=== PATIENT | female | born 1995 | race Caucasian/White ===

== ENCOUNTER 2017-06-08 08:16 | Emergency (ER) | payer OTHER ==
[2017-06-08] MEDS ORDERED: NORMAL SALINE 1000 ML 1,000 ML IV ONE (08:54)
[2017-06-08 09:32] LABS: ABSOLUTE LYMPHOCYTES (AUTO) 0.8 10^3/uL (0.5-4.7); ABSOLUTE MONOCYTES (AUTO) 1.2 10^3/uL (0.1-1.4); ABSOLUTE NEUT (AUTO) 10.9 10^3/uL (1.7-8.2); BASOPHILS % (AUTO) 0.1 % (0-2); HEMATOCRIT 34.9 % (36.0-47.0); HEMOGLOBIN 11.4 g/dL (12.0-15.5); MEAN CORPUSCULAR HEMOGLOBIN 27.4 pg (27.0-33.4); MEAN CORPUSCULAR HGB CONC 32.8 g/dL (32.0-36.0); MEAN CORPUSCULAR VOLUME 83 fl (80-97); PLATELET COUNT 299 10^3/uL (150-450); RED BLOOD COUNT 4.18 10^6/uL (3.72-5.28); RED CELL DISTRIBUTION WIDTH 14.5 % (11.5-14.0); SEGMENTED NEUTROPHILS % (AUTO) 84.9 % (42-78); TOTAL CELLS COUNTED % (AUTO) 100 %; WHITE BLOOD COUNT 12.8 10^3/uL (4.0-10.5)
[2017-06-08 09:42] LABS: APPEARANCE,URINE SLIGHTLY-CLOUDY; BILIRUBIN,URINE NEGATIVE (NEGATIVE); GLUCOSE, URINE NEGATIVE (NEGATIVE); KETONES,URINE TRACE mg/dL (NEGATIVE); LEUKOCYTE ESTERASE,URINE LARGE (NEGATIVE); NITRITE,URINE NEGATIVE (NEGATIVE); PROTEIN,URINE 30 mg/dL (NEGATIVE); URINE SPECIFIC GRAVITY 1.017
[2017-06-08 09:43] LABS: COLOR,URINE DARK YELLOW
[2017-06-08 09:54] LABS: ALANINE AMINOTRANSFERASE 105 U/L (9-52); ALBUMIN 3.8 g/dL (3.5-5.0); ALKALINE PHOSPHATASE 103 U/L (38-126); ANION GAP 15 (5-19); ASPARTATE AMINO TRANSFERASE 82 U/L (14-36); BILIRUBIN,DIRECT 0.3 mg/dL (0.0-0.4); BILIRUBIN,TOTAL 0.8 mg/dL (0.2-1.3); BLOOD UREA NITROGEN 6 mg/dL (7-20); CALCIUM 8.9 mg/dL (8.4-10.2); CARBON DIOXIDE 22 mmol/L (22-30); CHLORIDE 103 mmol/L (98-107); GLUCOSE 118 mg/dL (75-110); LIPASE 73.5 U/L (23-300); POTASSIUM 3.4 mmol/L (3.6-5.0); SODIUM 140.1 mmol/L (137-145); TOTAL PROTEIN 6.5 g/dL (6.3-8.2)
[2017-06-08] MEDS ORDERED: CEFTRIAXONE 1 GM/D5W RTU 1 GM/50 ML RTUPB IV ONE (09:55)
[2017-06-08] MEDS ORDERED: CEFTRIAXONE INJ 1000 MG VIAL IV ONE (10:08)
--- NOTE | 2017-06-08 10:22 | ER Document Report ---
ED General - General Chief Complaint: Fever Stated Complaint: FEVER/ABDOMINAL PAIN Time Seen by Provider: 06/08/17 08:54 TRAVEL OUTSIDE OF THE [place] IN LAST 30 DAYS: No - HPI Patient complains to provider of: Fever dysuria right flank pain Notes: Patient coming in for evaluation fever right flank pain and dysuria. States ongoing for the last 3 days also 3 days ago was seen at urgent care diagnosed with the flu started Tamiflu. Patient denies any chills chest pain abdominal pain most her pain is in the right flank. Denies history of kidney stones or any other medical pathology. Patient states he has been taking Tamiflu as prescribed by their physician. Patient resting comfortably upon my evaluation no signs of any obvious distress. - Related Data Allergies/Adverse Reactions: No Known Allergies Allergy (Unverified 06/08/17 08:23) Past Medical History - Social History Smoking Status: Never Smoker Chew tobacco use (# tins/day): No Frequency of alcohol use: None Drug Abuse: None Family History: Reviewed & Not Pertinent Patient has suicidal ideation: No Patient has homicidal ideation: No Renal/ Medical History: Denies: Hx Peritoneal Dialysis Review of Systems - Review of Systems Constitutional: Chills, Fever EENT: No symptoms reported Cardiovascular: No symptoms reported Respiratory: No symptoms reported Gastrointestinal: No symptoms reported Genitourinary: Dysuria, Flank pain Female Genitourinary: No symptoms reported Musculoskeletal: No symptoms reported Skin: No symptoms reported Hematologic/Lymphatic: No symptoms reported Neurological/Psychological: No symptoms reported -: Yes All other systems reviewed and negative Physical Exam - Vital signs Vitals: Temp Pulse Resp BP Pulse Ox 100.3 F 106 H 16 109/70 97 06/08/17 08:25 06/08/17 08:25 06/08/17 08:25 06/08/17 08:25 06/08/17 08:25 Interpretation: Normal - General General appearance: Appears well, Alert - HEENT Head: Normocephalic, Atraumatic Eyes: Normal Pupils: PERRL - Respiratory Respiratory status: No respiratory distress Chest status: Nontender Breath sounds: Normal Chest palpation: Normal - Cardiovascular Rhythm: Regular Heart sounds: Normal auscultation Murmur: No - Abdominal Inspection: Normal Distension: No distension Bowel sounds: Normal Tenderness: Nontender Organomegaly: No organomegaly - Back Back: Normal, Nontender, CVA tenderness - Tenderness in the middle of the right flank - Extremities General upper extremity: Normal inspection, Nontender, Normal color, Normal ROM , Normal temperature General lower extremity: Normal inspection, Nontender, Normal color, Normal ROM , Normal temperature, Normal weight bearing. No: Yanelis's sign - Neurological Neuro grossly intact: Yes Cognition: Normal Orientation: AAOx4 [place] Coma Scale Eye Opening: Spontaneous Eliazar Coma Scale Verbal: Oriented [place] Coma Scale Motor: Obeys Commands Eliazar Coma Scale Total: 15 Speech: Normal Motor strength normal: LUE, RUE, LLE, RLE Sensory: Normal - Psychological Associated symptoms: Normal affect, Normal mood - Skin Skin Temperature: Warm Skin Moisture: Dry Skin Color: Normal Course - Re-evaluation Re-evalutation: 06/08/17 10:21 Urinalysis consistent with a urinary tract infection with a normal right flank pain possibly early pyelonephritis. Patient was given a dose of Rocephin will discharge home with Keflex. Otherwise patient no signs of sepsis able to tolerate p.o. Did educate the patient about Tamiflu risk and benefits. - Vital Signs Vital signs: Temp Pulse Resp BP Pulse Ox 99.6 F 92 18 114/65 100 06/08/17 11:21 06/08/17 11:21 06/08/17 11:21 06/08/17 11:21 06/08/17 11:21 - Laboratory Result Diagrams: 06/08/17 09:14 06/08/17 09:14 Laboratory results interpreted by me: 06/08/17 06/08/17 06/08/17 09:14 09:14 09:14 WBC 12.8 H Hgb 11.4 L Hct 34.9 L RDW 14.5 H Seg Neutrophils % 84.9 H Lymphocytes % 6.0 L Absolute Neutrophils 10.9 H Potassium 3.4 L BUN 6 L Glucose 118 H AST 82 H ALT 105 H Urine Protein 30 H Urine Ketones TRACE H Urine Blood SMALL H Urine Urobilinogen 4.0 H Ur Leukocyte Esterase LARGE H Discharge - Discharge Clinical Impression: Pyelonephritis Condition: Good Disposition: HOME, SELF-CARE Instructions: Cephalexin ([facility]), Pyelonephritis ([facility]) Additional Instructions: Follow-up with primary care physician. Return to the ER if symptoms worsen. Take medications as prescribed return to the ER if symptoms worsen. Recommend taking Tylenol Motrin for fever control and pain control. Prescriptions: Cephalexin Monohydrate [Keflex 500 mg Capsule] 500 mg PO Q6H 10 Days capsule Ondansetron [Zofran Odt] 4 mg PO Q6 PRN #30 tab.rapdis PRN Reason: For Nausea/Vomiting Forms: Return to Work Referrals: CHEN MCBRIDE PA-C [Primary Care Provider] - Follow up as needed
[2017-06-08 11:26] VITALS: BP 114/65
== END 2017-06-08 11:26 | disposition home or self-care (01) ==
LOC: ER 08:16
DX: N12 Tubulo-interstitial nephritis, not specified as acute or chronic (principal); J11.1 Influenza due to unidentified influenza virus with other respiratory manifestations; R50.9 Fever, unspecified
CPT/HCPCS: 99283; 96361; 96374; 36415; 87086; 83690; 85025; 81025; 87088; 80053; 81001; 87186; J0696; J7030